=== PATIENT | female | born 1980 | race Caucasian/White ===

== ENCOUNTER 2016-12-03 22:59 | Emergency (ER) | payer MEDICAID ==
[~2016-12-03] VITALS: Ht 157.5 cm; Wt 84.0 kg
[~2016-12-03 22:59] MED LIST: AMBIEN10 MG PO; AMBIEN5 MG PO; AMOXICILLIN500 MG OR; AUGMENTIN875TAB PO; BACLOFEN10 MG PO; BACLOFEN20 MG PO; BACTRIM DS1 TAB PO; CEPHALEXIN500 MG PO; CIPROFLOXACN500 MG PO; CLOBETASOL0.053 EX; COLACE100 MG PO; CYCLOBENZAPR10 MG PO; DOXEPIN HCL100 MG PO; EFFEXOR XR75 MG/CAP PO; EFFEXOR75 MG PO; ELIMITE5 % EX; LAMICTAL ODT50 MG OR; LAMICTAL150 M1 PO; LAMICTAL150 MG PO; LORTAB5 PO; MACRODANTIN100 MG OR; MEDDOSEPAK PO; METFORMIN500 MG PO; NAPROSYN500 MG OR; NAPROSYN500 MG PO; NAPROXEN500 MG PO; NO HOME MEDS; NORCO1 TA1 PO; PAROXETINE10 MG PO; PAROXETINE20 MG PO; PAROXETINE40 MG PO; PAXIL30 MG OR; PAXIL30 MG PO; PENICILLN VK500 MG PO; PROTONIX40 MG PO; ROBITUSSIN AC10 ML PO; SINGULAIR5 MG PO; ULTRAM50 M1 PO; ULTRAM50 MG OR; ULTRAM50 MG PO; XANAX0.25 MG OR; XANAX0.25 MG PO; XANAX1 MG PO; ZOFRAN ODT4 MG PO; ZOFRAN4 M1 OR; ZOFRAN4 M1 PO; ZOLOFT100 MG PO; [UNRECOGNIZED DRUG - OTHER] PO
[2016-12-03] MEDS ORDERED: JANUVIA25 MG PO (23:33)
[2016-12-03] MEDS ORDERED: LATUDA40 MG PO (23:34)
[2016-12-03] MEDS ORDERED: CYMBALTA60 MG PO (23:35)
[2016-12-03] MEDS ORDERED: GABAPENTIN300 M2 PO (23:35)
[2016-12-03] MEDS ORDERED: NYSTATI1 TOP (23:37)
[2016-12-04 00:49] LABS: HEMATOCRIT 44.9 % (37.0-47.0); HEMOGLOBIN 15.1 g/dl (12.0-16.0); IMMATURE GRANULOCYTES 0.5 % (0.0-1.0); MEAN CELL VOLUME 92.6 fL CALC (80.0-100.0); MEAN CORPUSCULAR HGB 31.1 pG CALC (26.0-32.0); MEAN CORPUSCULAR HGB CONC 33.6 g/L CALC (32.0-36.0); NEUT# 9.9 thou/uL (2.00-7.15); RED BLOOD COUNT 4.85 mill/uL (4.20-5.60); RED CELL DISTRI WIDTH 13.2 % (11.5-15.5)
[2016-12-04 01:00] LABS: ALBUMIN 4.5 g/dL (3.2-5.0); ALKALINE PHOSPHATASE 78 u/l (38-126); ANION GAP 16 (6-22 (CALC)); BILIRUBIN, TOTAL 0.4 mg/dL (0.0-1.4); BUN 15 mg/dL (7-17); BUN/CREATININE RATIO 20 (12-20 (CALC)); CALCIUM 10.3 mg/dL (8.4-10.2); CARBON DIOXIDE 24 mmol/l (22-30); CHLORIDE 104 mmol/l (95-108); CREATININE 0.8 mg/dL (0.5-1.0); GFR > 60 ML/MIN (>=60 (CALC)); GFR FOR AFR.AMER. > 60 ML/MIN (>=60 (CALC)); GLUCOSE 141 mg/dL (65-105); SGOT/AST 23 u/l (14-36); SGPT/ALT 28 u/l (9-52); SODIUM 140 mmol/l (137-146); TOTAL PROTEIN 7.6 g/dL (6.3-8.2)
[2016-12-04 03:30] VITALS: BP 109/65
== END 2016-12-04 03:30 | disposition home or self-care (01) | DRG 103 ==
LOC: ED 22:59
PROVIDERS: Emergency Medicine
DX: R51 Headache (principal); E11.9 Type 2 diabetes mellitus without complications; F31.9 Bipolar disorder, unspecified; F41.9 Anxiety disorder, unspecified

== ENCOUNTER 2017-06-27 17:36 | Emergency (ER) | payer OTHER ==
[~2017-06-27] VITALS: Ht 157.5 cm; Wt 75.0 kg
[~2017-06-27 17:36] MED LIST changes: +CYMBALTA60 MG PO; +GABAPENTIN300 M2 PO; +JANUVIA25 MG PO; +LATUDA40 MG PO; +NYSTATI1 TOP
[2017-06-27] MEDS ORDERED: PERCOCET 5/325M1 TAB PO (18:20)
[2017-06-27] MEDS ORDERED: GLIPIZIDE ER2.5 MG PO (18:20)
[2017-06-27] MEDS ORDERED: WARFARIN5 MG PO (18:21)
[2017-06-27 19:10] VITALS: BP 130/75
== END 2017-06-27 19:10 | disposition home or self-care (01) | DRG 950 ==
LOC: ED 17:36
DX: S71.102D Unspecified open wound, left thigh, subsequent encounter (principal); E11.9 Type 2 diabetes mellitus without complications; F31.9 Bipolar disorder, unspecified; F41.9 Anxiety disorder, unspecified; F98.8 Other specified behavioral and emotional disorders with onset usually occurring in childhood and adolescence; F17.210 Nicotine dependence, cigarettes, uncomplicated; X58.XXXD Exposure to other specified factors, subsequent encounter

== ENCOUNTER 2019-07-06 20:01 | Emergency (ER) | payer MEDICAID ==
[~2019-07-06] VITALS: Ht 157.5 cm; Wt 82.0 kg
[~2019-07-06 20:01] MED LIST changes: +GLIPIZIDE ER2.5 MG PO; +PERCOCET 5/325M1 TAB PO; +WARFARIN5 MG PO
[2019-07-06 21:00] VITALS: BP 115/68
== END 2019-07-06 21:00 | disposition home or self-care (01) ==
LOC: ED 20:01
DX: E11.9 Type 2 diabetes mellitus without complications (principal)